=== PATIENT | male | born 1985 | race Caucasian/White ===

== ENCOUNTER 2016-08-30 09:29 | Emergency (ER) | payer OTHER ==
[~2016-08-30] VITALS: Ht 170.2 cm; Wt 90.9 kg
[2016-08-30 09:32] VITALS: TEMP 98.8
[2016-08-30] MEDS ORDERED: NORCO 325 MG-51 TAB PO (11:06)
[2016-08-30 12:05] VITALS: BP 121/82; PULSE 83
== END 2016-08-30 12:05 | disposition home or self-care (01) ==
LOC: COL.ER 09:29
DX: S62.611A Displaced fracture of proximal phalanx of left index finger, initial encounter for closed fracture (principal); W22.8XXA Striking against or struck by other objects, initial encounter

== ENCOUNTER 2016-11-15 13:15 | Outpatient (RCR) | payer OTHER ==
[~2016-11-15 13:15] MED LIST: NORCO 325 MG-51 TAB PO
== END 2016-11-23 09:17 | disposition home or self-care (01) ==
LOC: WSOT 13:15
DX: S62.611D Displaced fracture of proximal phalanx of left index finger, subsequent encounter for fracture with routine healing (principal); X58.XXXD Exposure to other specified factors, subsequent encounter